=== PATIENT | male | born 1955 | race Caucasian/White ===

== ENCOUNTER 2020-08-28 00:12 | Emergency (ER) | payer MEDICAID ==
[~2020-08-28] VITALS: Ht 182.9 cm; Wt 91.0 kg
[2020-08-28 01:24] LABS: BASOPHILS % 0.6 % (0.0-2.0); EOSINOPHILS % 5.3 % (0.0-5.0); HEMATOCRIT. 38.7 % (42.0-52.0); HEMOGLOBIN. 13.3 g/dL (14.0-18.0); LYMPHOCYTES % 26.1 % (20.0-50.0); MEAN CORPUSCULAR HEMOGLOBIN 30.5 pg (28.0-32.0); MEAN PLATELET VOLUME 7.3 fl (7.4-10.4); PLATELET 234 x1000/uL (130-400); RED BLOOD CELL COUNT 4.35 mill/uL (4.7-6.1); RED CELL DISTRIBUTION WIDTH 14.4 % (11.6-14.6)
[2020-08-28 01:32] LABS: CHLORIDE 110 mEq/L (98-107)
[2020-08-28 01:38] LABS: ETHANOL BLOOD < 10 mg/dL
[2020-08-28 02:15] LABS: CLARITY URINE CLEAR (CLEAR); COLOR URINE DARK YELLOW (YELLOW); KETONES URINE NEGATIVE (NEGATIVE); LEUKOCYTE ESTERASE URINE NEGATIVE (NEGATIVE); NITRITE URINE NEGATIVE (NEGATIVE); OCCULT BLOOD URINE NEGATIVE (NEGATIVE); PH URINE 5.5 (4.5-8.0); PROTEIN URINE TRACE (NEGATIVE); SPECIFIC GRAVITY URINE 1.038 (1.005-1.030)
[2020-08-28] MEDS: SODIUM CHLORIDE 0.9% 1,000 ML IV ONE ×2 (02:27→03:22)
[2020-08-28 02:51] LABS: *AMPHETAMINES SCREEN URINE PRESUMTIVE POSITIVE (NEGATIVE); *BARBITURATES SCREEN URINE NEGATIVE (NEGATIVE); *BENZODIAZEPINES SCREEN URINE PRESUMTIVE POSITIVE (NEGATIVE)
[2020-08-28 02:52] LABS: *COCAINE SCREEN URINE NEGATIVE (NEGATIVE); METHADONE URINE SCREEN NEGATIVE (NEGATIVE)
[2020-08-28 02:53] LABS: CANNABINOID URINE SCREEN PRESUMTIVE POSITIVE (NEGATIVE); OPIATES URINE SCREEN NEGATIVE (NEGATIVE); PHENCYCLIDINE URINE SCREEN NEGATIVE (NEGATIVE)
[2020-08-28] MEDS ORDERED: AZITHROMYCIN 500 MG in DEXT 5% WATER 250 ML IV NR (03:00)
[2020-08-28 04:00] VITALS: BP 115/64
[2020-08-28] MEDS ORDERED: CEFTRIAXONE 1 G PREMIX 50 ML IV NR (04:00)
[2020-08-28] MEDS ORDERED: OLANZAPINE 10 MG/VIAL IM ONE (04:45)
== END 2020-08-28 05:20 | disposition left against medical advice (07) ==
LOC: ER 00:30 → CANBEDREQ 15:37
DX: J18.9 Pneumonia, unspecified organism (principal); F16.10 Hallucinogen abuse, uncomplicated; Z20.822 Contact with and (suspected) exposure to COVID-19; F15.10 Other stimulant abuse, uncomplicated; F12.10 Cannabis abuse, uncomplicated; F91.8 Other conduct disorders; G40.909 Epilepsy, unspecified, not intractable, without status epilepticus; Z89.612 Acquired absence of left leg above knee; F10.21 Alcohol dependence, in remission
CPT/HCPCS: 36415; 70450; 71045; 80053; 80305; 80307; 80320; 80329; 81003; 82140; 83605; 84484; 85025; 87040; 93005; 96365; 96367; 96372; 99285; J0456; J0696; J3490; J7030; J7060; Z7610; G0480